=== PATIENT | female | born 1985 | race Caucasian/White ===

== ENCOUNTER 2017-09-02 13:35 | Day surgery (SDC) | payer OTHER ==
[2017-09-02] MEDS ORDERED: PROPOFOL 40 ML ×2 (15:04→15:34)
[2017-09-02] MEDS ORDERED: LIDOCAINE 100 MG SYRINGE (15:04)
== END 2017-09-02 17:21 | disposition home or self-care (01) ==
LOC: GIL 13:35
DX: K29.70 Gastritis, unspecified, without bleeding (principal); K44.9 Diaphragmatic hernia without obstruction or gangrene
CPT/HCPCS: 43239; 84703; 88305; 88312